=== PATIENT | female | born 1950 | race Caucasian/White ===

== ENCOUNTER 2019-01-18 10:15 | Day surgery (SDC) | payer MEDICARE, OTHER ==
[~2019-01-18 10:15] MED LIST: ADRENALIN ONE; VISCOAT IO ONE
[2019-01-18] MEDS ORDERED: TETRACAINE 0.5% OS SCH (11:15)
--- NOTE | 2019-01-18 11:26 | Anesthesia Consultation ---
Anesthesia Consult and Med Hx Date of service: 01/18/19 - Airway Anesthetic Teeth Evaluation: Good, Partials ROM Head & Neck: Adequate Mental/Hyoid Distance: Adequate Mallampati Class: Class II Intubation Access Assessment: Probably Good - Pulmonary Exam CTA: Yes - Cardiac Exam Cardiac Exam: RRR - Pre-Operative Health Status ASA Pre-Surgery Classification: ASA3 Proposed Anesthetic Plan: General, MAC - Pulmonary Hx Smoking: No Hx Asthma: Yes (ORAL MED; RESCUE INHALER; no hospitalizations) Hx Respiratory Symptoms: No Home Oxygen Therapy: No Hx Sleep Apnea: No - Cardiovascular System Hx Hypertension: Yes (2012; took medications this morning ) Hx Heart Attack/AMI: No Hx Cardia Arrhythmia: No Hx Peripheral Vascular Disease: No - Central Nervous System Hx Neuromuscular Disorder: No Hx Psychiatric Problems: No - Gastrointestinal Hx Gastroesophageal Reflux Disease: No - Endocrine Hx Renal Disease: No Hx Liver Disease: No Hx Insulin Dependent Diabetes: No Hx Non-Insulin Dependent Diabetes: No - Other Systems Hx Alcohol Use: No Hx Substance Use: No Hx Cancer: No Hx Obesity: No - Additional Comments Anesthesia Medical History Comments: No GAC, No FHAC
--- NOTE | 2019-01-18 11:27 | Anesthesia Day of Surgery ---
Anesthesia Day of Surgery - Day of Surgery Patient Examined: Yes Patient H&P Reviewed: Yes Patient is NPO: Yes Beta Blockers: No (n/a) Cardiac Clearance: No (n/a) Pulmonary Clearance: No (n/a)
[2019-01-18] MEDS ORDERED: VERSED ONE (11:30)
[2019-01-18] MEDS: AK-Dilate OS SCH ×3 (11:30→11:40)
[2019-01-18] MEDS: VIGAMOX OS SCH ×3 (11:30→11:40)
[2019-01-18] MEDS: MYDRIACYL OS SCH ×3 (11:30→11:40)
[2019-01-18] MEDS ORDERED: SUBLIMAZE ONE (11:30)
[2019-01-18] MEDS ORDERED: XYLOCAINE 1% MPF 5 mL IJ ONE (12:23)
[2019-01-18] MEDS ORDERED: VISCOAT IO ONE (12:24)
[2019-01-18] MEDS ORDERED: DIAMOX PO ONE ×3 (13:00→13:10)
--- NOTE | 2019-01-18 13:02 | Short Stay Summary ---
Short Stay Documentation Date of service: 01/18/19 - History H&P: obtained from office - Allergies and Medications Current Medications: Allergies No Known Allergies Allergy (Verified 01/17/19 12:42) Home Medications Medication Instructions Recorded Confirmed Last Taken Type Atorvastatin [Lipitor Tab] 80 mg PO QHS 01/18/19 01/18/19 01/17/19 History Levocetirizine Dihydrochloride 5 mg PO QDAY 01/18/19 01/18/19 01/17/19 History [Xyzal] Losartan [Cozaar] 100 mg PO QDAY 01/18/19 01/18/19 01/18/19 09:30 History Metoprolol [Lopressor] 100 mg PO QDAY 01/18/19 01/18/19 01/18/19 09:30 History Montelukast [Singulair] 10 mg PO QPM 01/18/19 01/18/19 01/17/19 History Ranitidine HCl [Acid Guard Driver] 150 mg PO QDAY 01/18/19 01/18/19 01/17/19 History hydroCHLOROthiazide 12.5 mg PO QDAY 01/18/19 01/18/19 01/18/19 09:30 History [Hydrochlorothiazide] Active Medications Acetazolamide (Diamox) 500 mg PO ONCE ONE Stop: 01/18/19 13:01 Moxifloxacin HCl (Vigamox) 1 drops OS Q5MIN [facility] Stop: 01/18/19 15:00 Last Admin: 01/18/19 11:40 Dose: 1 drops Documented by: Phenylephrine HCl (Ak-Dilate) 1 drops OS Q5MIN [facility] Stop: 01/18/19 15:00 Last Admin: 01/18/19 11:40 Dose: 1 drops Documented by: Prednisolone Acetate (Pred Forte 1%) 1 drops OS QID [facility] Tetracaine HCl (Tetracaine 0.5%) 1 drops OS Q5M [facility] Stop: 01/18/19 15:00 Last Admin: 01/18/19 11:29 Dose: 1 drops Documented by: Tropicamide (Mydriacyl) 1 drops OS Q5MIN [facility] Stop: 01/18/19 15:00 Last Admin: 01/18/19 11:40 Dose: 1 drops Documented by: - Brief post op/procedure progress note Date of procedure: 01/18/19 Pre-op diagnosis: mechanical complication of IOL left eye Post-op diagnosis: same Procedure: IOL exchange Left eye Anesthesia: MAC, local Surgeon: RUSS HYMAN Estimated blood loss: none Pathology: none Condition: stable - Disposition Condition at discharge: Good Disposition: DC-01 TO HOME OR SELFCARE - Discharge Diagnoses (1) Mechanical complication of intraocular lens Status: Resolved Qualifiers: Mechanical complication type: other Encounter type: sequela Qualified Code(s): T85.29XS - Other mechanical complication of intraocular lens, sequela Short Stay Discharge Plan Forms: Outpatient Surgery DC Inst.
--- NOTE | 2019-01-18 13:05 | Operative Report ---
Operative Report Operative Report: PATIENT'S NAME: DATE OF : DATE OF SURGERY: 01/18/2019 PREOPERATIVE DIAGNOSIS: Mechanical complication of intraocular lens left eye POSTOPERATIVE DIAGNOSIS: Same OPERATIVE PROCEDURE: IOL exchange left eye SURGEON: Kristin Aviles M.D. GIG TENDER SURGEON: None Lens: [mx60e 16.0] D ANESTHESIA: Monitored anesthesia care in combination with topical and intracameral anesthesia because of the established specific risk of reflux, arrhythmias, or anxiety attacks associated with ocular manipulation, as well as the difficulty of the cutch cleaner to manage such potentially catastrophic events while simultaneously attempting to complete the surgical procedure and was deemed necessary for the patient's safety to have an Consumer Affairs Specialist present during the procedure whenever possible. An Consumer Affairs Specialist was utilized to regulate the intravenous sedation of the patient so the patient was cooperative yet not asleep in order for the patient to successfully maintain fixation of the eye on the operating light of the microscope. COMPLICATIONS: [No surgical complications] No blood loss. ALLERGIES: [No known drug allergies] PROGNOSIS: Excellent INDICATIONS FOR SURGERY: The patient is undergoing surgery in the hopes of eliminating or improving these visual difficulties. PROCEDURE: After arriving at the surgery center, the patient was given topical anesthetic and dilating drops, as noted in the record. The patient was then taken into the operating room and given more anesthetic drops. The eyelids, lashes, and lid margins were scrubbed with Betadine solution, and the patient was draped. The Nurse Consumer Affairs Specialist administered IV sedation and monitored the patient during the procedure. The eye was then fixated with a 0.12, and a stab incision was made in the peripheral clear cornea into the anterior chamber. This was made on my left side. Viscoelastic was next used to fill the anterior chamber. The eye was once again fixated with the 0.12 forceps and a Sinsky hook was used to reopen the cornea incision on my right hand side temporally. The anterior chamber was refilled with viscoelastic. The one-piece, acrylic intraocular lens was removed from the back and cut in half . Then it let's removed from the anterior chamber. The new lens was then placed into an inserting cartridge. The tip of the inserting cartridge was introduced into the keratome incision and into the anterior chamber. The implant was gently advanced through the cartridge and into the eye, where it unfolded, and both haptics were placed in the capsular bag, where it centered nicely and appeared to be well fixated. After placement of the intraocular lens, the I~and~A handpiece was placed back into the eye and used to remove the viscoelastic, including viscoelastic that was behind the optic of the intraocular lens. The anterior chamber was then filled with balanced salt solution, and hydration of the wound was used to cause swelling of the wound and more appropriate watertight closure. When the wound was found to be firm, the patient was asked to comment on how bright the light was. If there was no light perception at all or if the light was substantially dimmer than during the rest of the surgery, the amount of fluid in the eye was decompressed to lower the intraocular pressure until the patient could see the bright light again. This was done to avoid any damage or decreased blood flow to the optic nerve. MEDICATIONS APPLIED AT END OF SURGERY: One drop of Pred Forte and Vigamox The patient was given a shield to wear at night and was instructed not to rub or push on the eye. DISCHARGE SUMMARY: The patient was released in stable condition. The patient and those with the patient were given a written sheet of postoperative instructions and counseling on any abnormal laboratory studies. The patient is to see us tomorrow for follow-up in the office and is to call immediately for any difficulties. Kristin Aviles M.D. Date
[2019-01-18 13:43] VITALS: BP 132/78
--- NOTE | 2019-01-18 13:47 | Post Anesthesia Evaluation ---
- Post Anesthesia Evaluation Patient Participated: Yes Airway Patent: Yes Stable Respiratory Function: Yes Nausea/Vomiting: No Temp > 96.8F: Yes Pain Manageable: Yes Adequeate Hydration: Yes Anesthesia Complications: No
[2019-01-18] MEDS ORDERED: PRED FORTE 1% OS SCH ×2 (14:00)
== END 2019-01-18 13:50 | disposition home or self-care (01) ==
LOC: OR 10:15
DX: T85.29XA Other mechanical complication of intraocular lens, initial encounter (principal); E78.00 Pure hypercholesterolemia, unspecified; I10 Essential (primary) hypertension; J45.909 Unspecified asthma, uncomplicated; M19.90 Unspecified osteoarthritis, unspecified site; F32.9 Major depressive disorder, single episode, unspecified; Z98.890 Other specified postprocedural states; Z80.8 Family history of malignant neoplasm of other organs or systems; Z79.899 Other long term (current) drug therapy; Z98.41 Cataract extraction status, right eye; Z98.42 Cataract extraction status, left eye; Y83.8 Other surgical procedures as the cause of abnormal reaction of the patient, or of later complication, without mention of misadventure at the time of the procedure; Y92.89 Other specified places as the place of occurrence of the external cause
CPT/HCPCS: 66986; 88302; J0171; J2250; J3010; 88300; V2632